=== PATIENT | male | born 1990 | race African-American/Black ===

== ENCOUNTER 2023-06-10 17:40 | Emergency (ER) | payer BC, SELFPAY ==
[2023-06-10] MEDS ORDERED: HYDROcodone/Acetaminophen 5/325 mg Tablet ONE (18:28)
== END 2023-06-10 18:55 | disposition home or self-care (01) ==
LOC: ERS 17:40
DX: S99.912A Unspecified injury of left ankle, initial encounter (principal); M25.562 Pain in left knee; F17.210 Nicotine dependence, cigarettes, uncomplicated; Y93.67 Activity, basketball